=== PATIENT | male | born 1995 ===

== ENCOUNTER 2025-04-06 12:27 | Emergency (ER) | payer OTHER ==
[~2025-04-06] VITALS: Ht 165.1 cm; Wt 72.1 kg
[2025-04-06] MEDS ORDERED: FAMOTIDINE/PF 20 MG in 0.9 % SODIUM CHLORIDE 8 ML IV PUSH STA (12:47)
[2025-04-06] MEDS ORDERED: THIAMINE HCL 100 MG TABLET PO ONE (13:00)
[2025-04-06] MEDS ORDERED: ONDANSETRON HCL 2 MG/ML VIAL IV ONE (13:00)
[2025-04-06] MEDS ORDERED: 0.9 % SODIUM CHLORIDE 1,000 ML IV SCH (13:00)
[2025-04-06 13:31] LABS: BASO % 0.4 % (0.1-1.2); EOS # 0.00 (0.04-0.54); EOS % 0.0 % (0.7-7.0); LYMPH # 4.35 (1.18-3.74); LYMPH % 35.9 % (19.3-53.1); MEAN PLATELET VOLUME 9.00 fl (9.4-12.4); MONO # 0.44 (0.24-0.82); MONO % 3.6 % (4.7-12.5); NEUT # 7.26 (1.56-6.13); NEUT % 59.9 % (34.0-71.1); RED CELL DISTRIBUTION WIDTH 11.7 % (11.6-14.4)
[2025-04-06 14:33] LABS: ALT/SGPT 38.0 U/L (12-78); AST/SGOT 44.0 U/L (15-37); BILIRUBIN TOTAL 1.69 mg/dL (0.3-1.2); BILIRUBIN,CONJUGATED 0.54 mg/dL (0.0-0.2); BUN CREA RATIO 12.0 (7.0-25.0); CREATININE SERUM 0.92 mg/dL (0.70-1.30); GFR 97.26; GLOBULINA 4.4 G/DL (2.4-3.5); OSMOLALITY SERUM 279.0 MOSM/KG (275-295)
[2025-04-06 14:36] LABS: GLUCOSE FASTING 237.0 mg/dL (65-100)
== END 2025-04-06 15:33 | disposition home or self-care (01) ==
LOC: ER 12:27
PROVIDERS: General Practice
DX: F10.129 Alcohol abuse with intoxication, unspecified (principal)